=== PATIENT | female | born 1950 | race Caucasian/White ===

== ENCOUNTER 2017-02-22 14:17 | Emergency (ER) | payer OTHER ==
[2017-02-22 14:22] VITALS: RESP 18; TEMP 98.2; O2SAT 97
--- NOTE | 2017-02-22 16:21 | EDPHY ---
HPI/HX/ROS/PE/MDM Narrative: CHIEF COMPLAINT: Itchy rash on back and right flank HPI: The patient is a 66 y/o female with a history of shingles in the complaining of an itchy rash on the right side of her body, onset last night. At dinner, last night she noticed an itchy rash on the middle of her back and noticed this morning an itchy rash on the front side of her right flank. She denies any pain or associated symptoms. REVIEW OF SYSTEMS: Aside from elements discussed in the HPI, a comprehensive 10-point review of systems was reviewed and is negative. PMH: Shingles in SOCIAL HISTORY: Cares for mother, has a sister, lives in [place] PHYSICAL EXAM: General:Patient is alert, in no acute distress. ENT:Eyes are normal to inspection. ENT inspection normal. Respiratory:No respiratory distress. Cardiovascular: Regular rate and rhythm. Normal cap refill. Abdomen:The abdomen is nontender to palpation. There are no peritoneal signs. There are normal bowel sounds. Back: Normal to inspection. No tenderness to palpation. Skin: Erythematous, vesicular rash on the middle lumbar spine, and right lower quadrant of abdomen consistent with zoster. Normal color. No rash. Warm and dry. Extremities: Normal appearance. Full range of motion. Neuro: Oriented x3. Normal motor function. Normal sensory function. ED Course: I assessed patient and confirmed that she may have a recurrence of shingles. I explained how to take the medications and that if the rash spreads beyond her right flank and back it likely is not zoster and she should be reexamined. I explained that she needs to frequently wash her hands and avoid contact with affected areas. She agrees to this course of action. General Time Seen by Provider: 02/22/17 15:54 Initial Vital Signs: Initial Vital Signs Temperature (C) 36.8 C 02/22/17 14:20 Heart Rate 78 02/22/17 14:20 Respiratory Rate 18 02/22/17 14:20 Blood Pressure 129/83 H 02/22/17 14:20 O2 Sat (%) 97 02/22/17 14:20 O2 Delivery Mode Room Air Allergies/Adverse Reactions: No Known Allergies Allergy (Unverified 02/22/17 14:19) Home Medications: Medication Instructions Recorded NK [No Known Home Meds] 02/22/17 Departure - Departure Disposition: Home, Routine, Self-Care Clinical Impression: Shingles outbreak Qualifiers: Herpes zoster complications: without complications Qualified Code(s): B02.9 - Zoster without complications Condition: Good Instructions: Shingles (ED) Additional Instructions: 1. Take medications as directed. Avoid contact with affected area. Wash your hands thoroughly and frequently, especially after contact with affected area. 2. If rash moves to left side of body please be reevaluated. 3. Follow-up with Dr. Silverio if needed. 4. Return to the ED for worsening of condition. Referrals: NONE *PRIMARY CARE P,. [Primary Care Provider] - As per Instructions Report Scribed for: Mynor Rodriguez Report Scribed by: Rose Leslie Date of Report: 02/22/17 Time of Report: 16:21 Physician Review and Approval Statement: Portions of this note were transcribed by an ED scribe. I personally performed the history, physical exam, and medical decision making; and confirm the accuracy of the information in the transcribed note.
[2017-02-22 16:41] VITALS: BP 132/76; PULSE 71
== END 2017-02-22 16:41 | disposition home or self-care (01) ==
DX: B02.9 Zoster without complications (principal)